=== PATIENT | female | born 1980 | race Caucasian/White ===

== ENCOUNTER 2017-04-20 10:54 | Observation (INO) | payer OTHER ==
--- NOTE | 2017-04-16 08:45 | PDGENHP ---
History and Physical - Chief Complaint RIGHT HIP PAIN - History of Present Illness 1. Bilateral~Femoroacetabular impingement (OSIEL) Cam type, with~resultant labral tear; RIGHT SIDE SYMPTOMATIC 2. Bilateral~Hip Dyplasia 3. Right hip early OA HISTORY OF PRESENT ILLNESS: Omeris a 37 y.o.~active female~who I have had the pleasure to consult on today.~I have enjoyed meeting her. She~lives in [place]. 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 ~She~is ; she~has one~child. ~Omerenjoys gymnastics (she was competed in [place]), hiking, and walking. 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 Presentation today is of~anterior right~hip pain. ~The hip does~wake her~at night and does not~click and catch on her. Sitting can be uncomfortable~for her. Omerdoes~report suffering from lower back pain episodes. Omerhas not~participated in physical therapy and has~tried other conservative measures including dry needling and chiropractic treatments. She~ has not~received sufficient symptomatic improvement. Omerhas~utilized medication for pain management, including NSAID. Omerhas used medication since the pain started. Omerdenies issues with the left~hip. ~ Omerunderstands that she~has a hip and pelvis problem which should be researched and wishes to get a better understanding of her~hip status, followed by an establishment of a treatment strategy, hoping she~would be able to get back to her~well being active life. History: Past medical history: ~ None which is relevant Relevant familial history: None which is relevant Past surgical history: No. Surgery Anesthesia 1 D&E (CLASSIFIED ADVERTISING MANAGER) General 2 Sinus surgery General 3 Calcaneal excision General Omerdescribes problematic issues with general anesthesia which includes nausea and vomiting. I have reviewed, verified and agree with the past medical, surgical, family and social history. Current Medications:~has a current medication list which includes the following prescription(s): ibuprofen. ALLERGIES:~is allergic to codeine; fentanyl; percocet [oxycodone-acetaminophen] ; and vicodin [hydrocodone-acetaminophen]. Objective: Physical Examination: Omeris 4~feet 11~inches tall and weighs~98~Lbs. Omeris AAO x3; she~ is well-nourished, in NAD. Skin is warm and dry. ~Breathing is non-labored. ~CV with RRR by pulse. Abdomen is soft, NTND. Currently, she~walks with a normal~gait. Trendelenburg sign is negative~and proprioception~is normal, both~sides. She~presents~with moderate~signs of joint laxity.~Beightons Score: 5 Lower spine examination is negative~for sciatic or femoral nerve irritation with negative~SLR &~femoral stretch tests. Range of motion of the spine is normal~for flexion, extension, and rotations, with no~associated pain. Strength, Sensation and pulses are normal - bilaterally Ankles and knees exams are normal~and no~mal-alignment is evident. She~has~no~leg length discrepancy. Thigh circumference is asymmetric~with~low~muscle atrophy~on right~side. Hip ROM (degrees): FL ER At 90~hip FL IR At 90~hip FL AB AD EX IR Neutral hip ER Neutral hip R 125 55 20 45 10 10 40 15 L 125 50 35 55 5 10 50 5 Specific hip and pelvis tests: Quadrant ELMIRA Roll Add. Longus R +++ +++ + + L Negative Negative Negative Negative Glut. Med ITB Pos. Imp R Negative 5/5 strength Negative 5/5 strength Negative L Negative 5/5 strength Negative 5/5 strength Negative Squeeze test measured normal Bony Symphysis pubis is pain free~to touch while concentric activity of the rectus abdominis, does not~produce pain at its insertion. Ilio Psos specific tests are negative for pain during cycling for both hips~and remarkable for non painful snap HF has good strength and no pain both hips. Anterior capsule tenderness RIGHT Greater trochanteric burse is pain free~on both hips. Piriformis tests: FAIR is negative, with no~local signs of neuritis related to sciatic nerve. SIJs examination is produces pain on right side~with normal~ELMIRA in relation and local tenderness. Hamstrings tests are negative~functional contraction and negative~tendinopathy both hips. On a daily basis, the following percentages reflect Yulia's overall total pain: Deep hip: 80% SIJ: 20% Imaging: Radiology studies which I~have personally reviewed, analyzed and measured are below: XR: AP of the hip and pelvis: Performed in a good~technique Coccyx to pubic symphysis distance 2.8~cm. 0~degrees [place]~Lines are preserved. Minimal~Pathological signs are seen in the Symphysis Pubis. Minimal~Pathological signs are seen at the Ischial~tuberosity. ~ Specific measurements show: NSA~ LCE Sourcil~Angle Sharp's angle Lat. Cam Lat. Pincer C.Over~sign Head~Coverage % ATDmm R N 14 13 46 + - 12-12:30 60 N L N 13 16 48 + - - 63 N Pos. wall sign ISS NAD ~~Dysplasia Comments R Negative Negative 11.6~mm ++ L Negative Negative 14.7 mm ++ Sclerosis Sup. Lat. OA Cysts Joint Space-WBZ Joint Space-Medial R Negative Negative + 3.3~mm 4.0~mm L Negative Negative + 4.3~mm 4.0~mm X Table lateral: Anterior cam lesion is seen~on both hips. Alpha Angle: ~ Right 70~dergrees Left 76~degrees MRI shows:~significant labral tear, no bone edema, early JSN Impression and plan:~ Yulia~is a 37 y.o.~active female~suffering from symptomatic right~hip pain due to Right Hip Dysplasia and OSIEL CAM type~causing significant disability to her~and altering~her~sport and life activities. Physical examination, imaging, and her~story correspond with the diagnosis mentioned above. I explained that hip dysplasia is a condition wherein the hip joint has excessive play~and instability due to a variety of factors, including the depth and adequacy of the socket, the orientation of the femur bone, and ligament laxity around the hip joint. Dysplasia ranges in severity from borderline to seferino, with treatment options being specific to the specific nature of the problem. Left untreated, the instability in the hip joint can cause progressive tearing of the labrum and deterioration of the surface cartilage, ultimately resulting in progressive osteoarthritis of the hip. I explained that femoroacetabular impingement (OSIEL - Cam type) arises due to a bony or soft tissue conflict between the femur (ball) and acetabulum (socket) caused by an abnormality in the shape of the femoral head and neck. Over time, repetitive impingement can result in damage to the labrum and adjacent surface cartilage within the socket, ultimately giving rise to progressive osteoarthritis of the hip. I explained that although a labral tear can be a source of pain, it is rarely the root of the problem and typically occurs secondary to an underlying abnormality in the shape and mechanics of the hip joint. I reviewed conservative treatment options for Dysplasia and OSIEL including activity modification to avoid positions of impingement or instability, physical therapy, non-steroidal anti-inflammatory medications, and various injections (corticosteroid and PRP) aimed at reducing inflammation in the hip joint or/and preventing dynamic instability and impingement. PRP injections may promote healing and reduce symptoms in certain cases but it will not repair chronically damaged tissue. Although these measures may help to buy time~and reduce current level of symptoms, they are not a definitive solution to the problem given the underlying abnormality in the shape of the hip joint. Patients who have failed conservative management and continue to experience symptoms are candidates for definitive surgical treatment, which may consist of hip arthroscopy alone or in combination with more invasive bony realignment procedures of the hip socket and/or femur called periacetabular osteotomy (BOSTON) or derotational femoral osteotomy (DFO). Hip arthroscopy typically includes treating the labrum with either repair or reconstruction of the torn labrum; as well as addressing the underlying abnormalities by restoring the normal shape to the hip joint. If the cartilage is damaged a Microfracture surgical procedure may also be necessary to help stimulate the growth of fibrocartilage. If a patient requires a labral reconstruction or a Microfracture, the initial rehabilitation from the surgery may take longer, but the intermediate accountant results are typically favorable. I reviewed the technical aspects of periacetabular osteotomy (BOSTON) including risks, benefits, and expected course of recovery. Yulia~understands that BOSTON is an inpatient procedure carried out through two medium sized incisions on the front and back of the hip joint. The hip socket is cut, realigned, and stabilized with 2 ~3 internal screws. Risks include infection, bleeding, injury to nearby nerves or vessels, stiffness, persistent pain, instability, failure of bony healing, implant related complications, and venous thromboembolic disease. Rarely, revision surgery may be required to address these problems. Risks, potential complications, side effects and recovery from surgical procedure were discussed in length. We explained how this surgery is an open procedure, and though patients tend to do well in the long-term, it involves significant pain in the first 2-4 weeks post-op and a rather lengthy rehab.~Overall recovery takes approximately 6 ~12~months depending on the extent of damage and degree of repair. Omerunderstands that she~will undergo hip arthroscopy 1 week prior to the BOSTON to address damage inside the hip joint. Omerunderstands that hip arthroscopy and BOTSON are two separate procedures that are best performed one week apart, with the arthroscopy commencing first to "tighten up" any pathology evident in the hip joint (labral repair, etc.) and the BOSTON open procedure occurring 7-10 days later to realign the acetabulum. Omerwill review the info presented. In order to obtain more detailed information regarding the alignment, orientation, and shape of the bony hip and pelvis I will order a CT scan to be performed. The results of the CT scan, including femoral torsion and acetabular version measured values and 3D images, will aid me in deciding on the best treatment strategy and surgical pre-planning. Omeris going to contact us after completing her~imaging studies. Omeris happy with this plan. I have also supplied her~with handouts, outlining the expected surgical treatment and rehab involved. I wish~YuliaChaddall the best, ~~ Chidi Wagner, PAC History Information - Allergies/Home Medication List Allergies/Adverse Reactions: codeine Allergy (Verified 04/02/17 11:55) fentanyl Allergy (Verified 04/02/17 11:55) hydrocodone [From Vicodin] Allergy (Verified 04/02/17 11:55) oxycodone [From Percocet] Allergy (Verified 04/02/17 11:56) GI Home Medications: NK [No Known Home Meds] 04/02/17 [Last Taken Unknown] I have personally reviewed and updated: medical history - Social History Smoking Status: Never smoked
[2017-04-20] MEDS ORDERED: LIDOCAINE 1% 2 ML INJ ONE (11:45)
[2017-04-20] MEDS ORDERED: PREGABALIN 150 MG CAP PO ONE (11:46)
[2017-04-20] MEDS ORDERED: ceFAZolin 2 GM/DEXTROSE 100 ML IV ONE (11:46)
[2017-04-20] MEDS ORDERED: ACETAMINOPHEN 500 MG TAB PO ONE (11:46)
[2017-04-20] MEDS ORDERED: PREGABALIN 150 MG CAP ONE (11:50)
[2017-04-20] MEDS ORDERED: ACETAMINOPHEN 500 MG TAB ONE (11:51)
[2017-04-20] MEDS ORDERED: CEFAZOLIN 2 GM/DEXTROSE/100 ML BAG IV ONE (11:51)
[2017-04-20] MEDS ORDERED: LR 1,000 ML IV ONE (11:54)
[2017-04-20] MEDS ORDERED: LIDOCAINE 1% 2 ML INJ ID PRN (11:54)
[2017-04-20] MEDS ORDERED: PROPOFOL 200 MG/20 ML VIAL ONE (14:18)
[2017-04-20] MEDS ORDERED: fentaNYL 100 MCG/2 ML INJ ONE (14:18)
[2017-04-20] MEDS ORDERED: ROCURONIUM 100 MG/10 ML VIAL ONE (14:25)
[2017-04-20] MEDS ORDERED: LIDOCAINE 2% 100 MG/5 ML SYR ONE (14:25)
[2017-04-20] MEDS ORDERED: ONDANSETRON 4 MG/2 ML VIAL ONE (14:25)
[2017-04-20] MEDS ORDERED: DEXAMETHASONE 4 MG/ML VIAL ONE (15:58)
[2017-04-20] MEDS ORDERED: HYDROmorphONE/DILAUDID 2 MG/ML INJ ONE (15:58)
[2017-04-20] MEDS: HYDROmorphONE/DILAUDID 1 MG/ML SYR IVP PRN ×2 (18:39→18:47)
[2017-04-20] MEDS ORDERED: NALOXONE HCL 0.4 MG/ML INJ IVP PRN (18:58)
[2017-04-20] MEDS ORDERED: ONDANSETRON 4 MG/2 ML VIAL IVP PRN (18:58)
[2017-04-20] MEDS ORDERED: ACETAMINOPHEN 500 MG TAB PO PRN (18:58)
[2017-04-20] MEDS ORDERED: LR 500 ML IV PRN (18:58)
[2017-04-20] MEDS ORDERED: PROMETHAZINE HCL 25 MG/ML INJ IVP PRN (18:58)
[2017-04-20] MEDS ORDERED: SCOPOLAMINE HYDROBROMIDE 1.5 MG PATCH TD ONE ×2 (20:15→20:47)
[2017-04-20] MEDS ORDERED: HYDROmorphONE/DILAUDID 2 MG TAB PO PRN (20:51)
[2017-04-20] MEDS ORDERED: HYDROmorphONE/DILAUDID 1 MG/ML SYR IVP PRN (20:52)
[2017-04-20] MEDS ORDERED: diphenhydrAMINE 25 MG CAP PO PRN (20:52)
[2017-04-20] MEDS ORDERED: DIAZEPAM 2 MG TAB PO PRN (20:53)
[2017-04-20] MEDS ORDERED: ONDANSETRON DISINTEGRATING 4 MG TAB PO PRN (20:54)
[2017-04-20] MEDS: NAPROXEN SODIUM 220 MG TAB PO SCH (22:08)
[2017-04-21 05:47] VITALS: RESP 16
[2017-04-21] MEDS ORDERED: LR 1,000 ML IV SCH (06:00)
[2017-04-21 07:17] VITALS: BP 91/51; PULSE 92; TEMP 99; O2SAT 96
[2017-04-21] MEDS: NAPROXEN SODIUM 220 MG TAB PO SCH (08:07)
--- NOTE | 2017-04-22 15:07 | PDANEPAE ---
ANE History of Present Illness right hip OSIEL ANE Past Medical History - Cardiovascular History Hx Hypertension: No Hx Arrhythmias: No Hx Chest Pain: No Hx Coronary Artery / Peripheral Vascular Disease: No Hx CHF / Valvular Disease: No Hx Palpitations: No - Pulmonary History Hx COPD: No Hx Asthma/Reactive Airway Disease: No Hx Recent Upper Respiratory Infection: No Hx Oxygen in Use at Home: No Hx Sleep Apnea: No Sleep Apnea Screening Result - Last Documented: Negative - Neurologic History Hx Cerebrovascular Accident: No Hx Seizures: No Hx Dementia: No - Endocrine History Hx Diabetes: No - Renal History Hx Renal Disorders: No - Liver History Hx Hepatic Disorders: No - Neurological & Psychiatric Hx Hx Neurological and Psychiatric Disorders: No - Cancer History Hx Cancer: No - Congenital Disorder History Hx Congenital Disorders: Yes Congenital History Comment: HIP DYSPLASIA - GI History Hx Gastrointestinal Disorders: No - Chronic Pain History Chronic Pain: Yes (RT HIP) - Surgical History Prior Surgeries: RT HIP SCOPE,LABRAL REPAIR 04/20/2017 ANE Review of Systems - Exercise capacity METS (RN): 4 METS ANE Patient History - Allergies Allergies/Adverse Reactions: codeine Allergy (Verified 04/02/17 11:55) fentanyl Allergy (Verified 04/02/17 11:55) hydrocodone [From Vicodin] Allergy (Verified 04/02/17 11:55) oxycodone [From Percocet] Allergy (Verified 04/02/17 11:56) GI - Home Medications Home medications: home medication list seen and reviewed Home Medications: NK [No Known Home Meds] 04/02/17 [Last Taken Unknown] - NPO status NPO Since - Liquids (Date): 04/19/17 NPO Since - Liquids (Time): 21:00 NPO Since - Solids (Date): 04/19/17 NPO Since - Solids (Time): 20:00 - Anes Hx Anes Hx: no prior problems - Smoking Hx Smoking Status: Never smoked ANE Labs/Vital Signs - Vital Signs Blood Pressure: 91/51 Heart Rate: 92 Respiratory Rate: 16 O2 Sat (%): 96 Height: 149.86 cm Weight: 42.638 kg ANE Physical Exam - Airway Neck exam: FROM Mallampati Score: Class 1 Mouth exam: normal dental/mouth exam - Pulmonary Pulmonary: no respiratory distress - Cardiovascular Cardiovascular: regular rate and rhythym - ASA Status ASA Status: II ANE Anesthesia Plan Anesthesia Plan: general endotracheal anesthesia (NOTE: this documentation was performed on the correct DOS 04/20/17, however it was originally entered incorrectly under a future DOS 04/27/17)
--- NOTE | 2017-04-22 15:08 | POSTANESTH ---
Post Anesthetic Evaluation Cardiovascular Status: Normal, Stable Respiratory Status: Normal, Stable Level of Consciousness/Mental Status: Can Participate in Eval Pain Control: Adequate, Prn Tx Ordered Nausea/Vomiting Control: Adequate, Prn Tx Ordered Complications Possibly Related to Anesthesia: None Noted (NOTE: this documentation was performed on the correct DOS 04/20/17, however it was originally entered incorrectly under a future DOS 04/27/17)
== END 2017-04-21 09:00 | disposition home or self-care (01) ==
LOC: FSGY 10:54 → F3N 20:30
PROVIDERS: ADMIT Orthopaedic Surgery Sports Medicine; ATTEND Orthopaedic Surgery Sports Medicine
PROC: 0SQ94ZZ Repair Right Hip Joint, Percutaneous Endoscopic Approach (ICD-10-PCS; principal; 2017-04-20 12:45)
DX: M25.851 Other specified joint disorders, right hip (principal); M16.11 Unilateral primary osteoarthritis, right hip
CPT/HCPCS: 29914; 29916; 76001; G0378; C1713; C1769; J0171; J0690; J1100; J1170; J2001; J2405; J2704; J3010

== ENCOUNTER 2017-04-27 05:59 | Inpatient (IN) | payer OTHER ==
--- NOTE | 2017-04-20 14:10 | PDANEPAE ---
ANE History of Present Illness right hip OSIEL ANE Past Medical History - Cardiovascular History Hx Hypertension: No Hx Arrhythmias: No Hx Chest Pain: No Hx Coronary Artery / Peripheral Vascular Disease: No Hx CHF / Valvular Disease: No Hx Palpitations: No - Pulmonary History Hx COPD: No Hx Asthma/Reactive Airway Disease: No Hx Recent Upper Respiratory Infection: No Hx Oxygen in Use at Home: No Hx Sleep Apnea: No Sleep Apnea Screening Result - Last Documented: Negative - Neurologic History Hx Cerebrovascular Accident: No Hx Seizures: No Hx Dementia: No - Endocrine History Hx Diabetes: No - Renal History Hx Renal Disorders: No - Liver History Hx Hepatic Disorders: No - Neurological & Psychiatric Hx Hx Neurological and Psychiatric Disorders: No - Cancer History Hx Cancer: No - Congenital Disorder History Hx Congenital Disorders: Yes Congenital History Comment: HIP DYSPLASIA - GI History Hx Gastrointestinal Disorders: No - Chronic Pain History Chronic Pain: Yes (RT HIP) - Surgical History Prior Surgeries: RT HIP SCOPE,LABRAL REPAIR 04/20/2017 ANE Review of Systems Review of systems is: negative - Exercise capacity METS (RN): 4 METS ANE Patient History - Allergies Allergies/Adverse Reactions: codeine Allergy (Verified 04/02/17 11:55) fentanyl Allergy (Verified 04/02/17 11:55) hydrocodone [From Vicodin] Allergy (Verified 04/02/17 11:55) oxycodone [From Percocet] Allergy (Verified 04/02/17 11:56) GI - Home Medications Home medications: home medication list seen and reviewed Home Medications: NK [No Known Home Meds] 04/02/17 [Last Taken Unknown] - Anes Hx Anes Hx: no prior problems - Smoking Hx Smoking Status: Never smoked ANE Labs/Vital Signs - Vital Signs Height: 149.86 cm Weight: 42.638 kg ANE Physical Exam - Airway Neck exam: FROM Mallampati Score: Class 1 Mouth exam: normal dental/mouth exam - Pulmonary Pulmonary: no respiratory distress - Cardiovascular Cardiovascular: regular rate and rhythym - ASA Status ASA Status: II ANE Anesthesia Plan Anesthesia Plan: general endotracheal anesthesia
--- NOTE | 2017-04-20 18:25 | POSTANESTH ---
Post Anesthetic Evaluation Cardiovascular Status: Normal, Stable Respiratory Status: Normal, Stable Level of Consciousness/Mental Status: Can Participate in Eval Pain Control: Adequate, Prn Tx Ordered Nausea/Vomiting Control: Adequate, Prn Tx Ordered Complications Possibly Related to Anesthesia: None Noted
--- NOTE | 2017-04-23 08:34 | PDGENHP ---
History and Physical - Chief Complaint RIGHT HIP PAIN - History of Present Illness 1. Bilateral~Femoroacetabular impingement (OSIEL) Cam type, with~resultant labral tear; RIGHT SIDE SYMPTOMATIC 2. Bilateral~Hip Dyplasia 3. Right hip early OA HISTORY OF PRESENT ILLNESS: Omeris a 37 y.o.~active female~who I have had the pleasure to consult on today.~I have enjoyed meeting her. She~lives in [place]. 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 ~She~is ; she~has one~child. ~Omerenjoys gymnastics (she was competed in [place]), hiking, and walking. Yulia's right~hip pain~started in August 2016 after a CASTING CLEANER procedure, with no~recalled trauma or injury, and with no~previous complaints.~Omerdoes not have~a known history of hip dysplasia. Presentation today is of~anterior right~hip pain. ~The hip does~wake her~at night and does not~click and catch on her. Sitting can be uncomfortable~for her. Omerdoes~report suffering from lower back pain episodes. Omerhas not~participated in physical therapy and has~tried other conservative measures including dry needling and chiropractic treatments. She~ has not~received sufficient symptomatic improvement. Omerhas~utilized medication for pain management, including NSAID. Omerhas used medication since the pain started. Omerdenies issues with the left~hip. ~ Omerunderstands that she~has a hip and pelvis problem which should be researched and wishes to get a better understanding of her~hip status, followed by an establishment of a treatment strategy, hoping she~would be able to get back to her~well being active life. History: Past medical history: ~ None which is relevant Relevant familial history: None which is relevant Past surgical history: No. Surgery Anesthesia 1 D&E (CASTING CLEANER) General 2 Sinus surgery General 3 Calcaneal excision General Omerdescribes problematic issues with general anesthesia which includes nausea and vomiting. I have reviewed, verified and agree with the past medical, surgical, family and social history. Current Medications:~has a current medication list which includes the following prescription(s): ibuprofen. ALLERGIES:~is allergic to codeine; fentanyl; percocet [oxycodone-acetaminophen] ; and vicodin [hydrocodone-acetaminophen]. Objective: Physical Examination: Omeris 4~feet 11~inches tall and weighs~98~Lbs. Omeris AAO x3; she~ is well-nourished, in NAD. Skin is warm and dry. ~Breathing is non-labored. ~CV with RRR by pulse. Abdomen is soft, NTND. Currently, she~walks with a normal~gait. Trendelenburg sign is negative~and proprioception~is normal, both~sides. She~presents~with moderate~signs of joint laxity.~Beightons Score: 5 Lower spine examination is negative~for sciatic or femoral nerve irritation with negative~SLR &~femoral stretch tests. Range of motion of the spine is normal~for flexion, extension, and rotations, with no~associated pain. Strength, Sensation and pulses are normal - bilaterally Ankles and knees exams are normal~and no~mal-alignment is evident. She~has~no~leg length discrepancy. Thigh circumference is asymmetric~with~low~muscle atrophy~on right~side. Hip ROM (degrees): FL ER At 90~hip FL IR At 90~hip FL AB AD EX IR Neutral hip ER Neutral hip R 125 55 20 45 10 10 40 15 L 125 50 35 55 5 10 50 5 Specific hip and pelvis tests: Quadrant ELMIRA Roll Add. Longus R +++ +++ + + L Negative Negative Negative Negative Glut. Med ITB Pos. Imp R Negative 5/5 strength Negative 5/5 strength Negative L Negative 5/5 strength Negative 5/5 strength Negative Squeeze test measured normal Bony Symphysis pubis is pain free~to touch while concentric activity of the rectus abdominis, does not~produce pain at its insertion. Ilio Psos specific tests are negative for pain during cycling for both hips~and remarkable for non painful snap HF has good strength and no pain both hips. Anterior capsule tenderness RIGHT Greater trochanteric burse is pain free~on both hips. Piriformis tests: FAIR is negative, with no~local signs of neuritis related to sciatic nerve. SIJs examination is produces pain on right side~with normal~ELMIRA in relation and local tenderness. Hamstrings tests are negative~functional contraction and negative~tendinopathy both hips. On a daily basis, the following percentages reflect Yulia's overall total pain: Deep hip: 80% SIJ: 20% Imaging: Radiology studies which I~have personally reviewed, analyzed and measured are below: XR: AP of the hip and pelvis: Performed in a good~technique Coccyx to pubic symphysis distance 2.8~cm. 0~degrees [place]~Lines are preserved. Minimal~Pathological signs are seen in the Symphysis Pubis. Minimal~Pathological signs are seen at the Ischial~tuberosity. ~ Specific measurements show: NSA~ LCE Sourcil~Angle Sharp's angle Lat. Cam Lat. Pincer C.Over~sign Head~Coverage % ATDmm R N 14 13 46 + - 12-12:30 60 N L N 13 16 48 + - - 63 N Pos. wall sign ISS NAD ~~Dysplasia Comments R Negative Negative 11.6~mm ++ L Negative Negative 14.7 mm ++ Sclerosis Sup. Lat. OA Cysts Joint Space-WBZ Joint Space-Medial R Negative Negative + 3.3~mm 4.0~mm L Negative Negative + 4.3~mm 4.0~mm X Table lateral: Anterior cam lesion is seen~on both hips. Alpha Angle: ~ Right 70~dergrees Left 76~degrees MRI shows:~significant labral tear, no bone edema, early JSN Impression and plan:~ Yulia~is a 37 y.o.~active female~suffering from symptomatic right~hip pain due to Right Hip Dysplasia and OSIEL CAM type~causing significant disability to her~and altering~her~sport and life activities. Physical examination, imaging, and her~story correspond with the diagnosis mentioned above. I explained that hip dysplasia is a condition wherein the hip joint has excessive play~and instability due to a variety of factors, including the depth and adequacy of the socket, the orientation of the femur bone, and ligament laxity around the hip joint. Dysplasia ranges in severity from borderline to seferino, with treatment options being specific to the specific nature of the problem. Left untreated, the instability in the hip joint can cause progressive tearing of the labrum and deterioration of the surface cartilage, ultimately resulting in progressive osteoarthritis of the hip. I explained that femoroacetabular impingement (OSIEL - Cam type) arises due to a bony or soft tissue conflict between the femur (ball) and acetabulum (socket) caused by an abnormality in the shape of the femoral head and neck. Over time, repetitive impingement can result in damage to the labrum and adjacent surface cartilage within the socket, ultimately giving rise to progressive osteoarthritis of the hip. I explained that although a labral tear can be a source of pain, it is rarely the root of the problem and typically occurs secondary to an underlying abnormality in the shape and mechanics of the hip joint. I reviewed conservative treatment options for Dysplasia and OSIEL including activity modification to avoid positions of impingement or instability, physical therapy, non-steroidal anti-inflammatory medications, and various injections (corticosteroid and PRP) aimed at reducing inflammation in the hip joint or/and preventing dynamic instability and impingement. PRP injections may promote healing and reduce symptoms in certain cases but it will not repair chronically damaged tissue. Although these measures may help to buy time~and reduce current level of symptoms, they are not a definitive solution to the problem given the underlying abnormality in the shape of the hip joint. Patients who have failed conservative management and continue to experience symptoms are candidates for definitive surgical treatment, which may consist of hip arthroscopy alone or in combination with more invasive bony realignment procedures of the hip socket and/or femur called periacetabular osteotomy (BOSTON) or derotational femoral osteotomy (DFO). Hip arthroscopy typically includes treating the labrum with either repair or reconstruction of the torn labrum; as well as addressing the underlying abnormalities by restoring the normal shape to the hip joint. If the cartilage is damaged a Microfracture surgical procedure may also be necessary to help stimulate the growth of fibrocartilage. If a patient requires a labral reconstruction or a Microfracture, the initial rehabilitation from the surgery may take longer, but the emt intermediate results are typically favorable. I reviewed the technical aspects of periacetabular osteotomy (BOSTON) including risks, benefits, and expected course of recovery. Yulia~understands that BOSTON is an inpatient procedure carried out through two medium sized incisions on the front and back of the hip joint. The hip socket is cut, realigned, and stabilized with 2 ~3 internal screws. Risks include infection, bleeding, injury to nearby nerves or vessels, stiffness, persistent pain, instability, failure of bony healing, implant related complications, and venous thromboembolic disease. Rarely, revision surgery may be required to address these problems. Risks, potential complications, side effects and recovery from surgical procedure were discussed in length. We explained how this surgery is an open procedure, and though patients tend to do well in the long-term, it involves significant pain in the first 2-4 weeks post-op and a rather lengthy rehab.~Overall recovery takes approximately 6 ~12~months depending on the extent of damage and degree of repair. Omerunderstands that she~will undergo hip arthroscopy 1 week prior to the BOSTON to address damage inside the hip joint. Omerunderstands that hip arthroscopy and BOSTON are two separate procedures that are best performed one week apart, with the arthroscopy commencing first to "tighten up" any pathology evident in the hip joint (labral repair, etc.) and the BOSTON open procedure occurring 7-10 days later to realign the acetabulum. Omerwill review the info presented. In order to obtain more detailed information regarding the alignment, orientation, and shape of the bony hip and pelvis I will order a CT scan to be performed. The results of the CT scan, including femoral torsion and acetabular version measured values and 3D images, will aid me in deciding on the best treatment strategy and surgical pre-planning. Omeris going to contact us after completing her~imaging studies. Omeris happy with this plan. I have also supplied her~with handouts, outlining the expected surgical treatment and rehab involved. I wish~YuliaChaddall the best, ~~ Chidi Wagner, PAC History Information - Allergies/Home Medication List Allergies/Adverse Reactions: codeine Allergy (Verified 04/02/17 11:55) fentanyl Allergy (Verified 04/02/17 11:55) hydrocodone [From Vicodin] Allergy (Verified 04/02/17 11:55) oxycodone [From Percocet] Allergy (Verified 04/02/17 11:56) GI Home Medications: NK [No Known Home Meds] 04/02/17 [Last Taken Unknown] I have personally reviewed and updated: medical history - Social History Smoking Status: Never smoked
[~2017-04-27 05:59] MED LIST: ACETAMINOPHEN 500 MG TAB PO PRN; HYDROmorphONE/DILAUDID 1 MG/ML SYR IVP PRN; HYDROmorphONE/DILAUDID 1 MG/ML SYR ONE; LR 500 ML IV PRN; MEPERIDINE 25 MG/ML SYR IVP PRN; MIDAZOLAM 2 MG/2 ML VIAL IVP ONE; NALOXONE HCL 0.4 MG/ML INJ IVP PRN; ONDANSETRON 4 MG/2 ML VIAL IVP PRN; ONDANSETRON 4 MG/2 ML VIAL ONE; PATCH REMOVAL 1 EA PATCH TD ONE; PROMETHAZINE HCL 25 MG/ML INJ IVP PRN; PROMETHAZINE HCL 25 MG/ML INJ ONE; SCOPOLAMINE HYDROBROMIDE 1.5 MG PATCH TD ONE
[2017-04-27] MEDS ORDERED: LIDOCAINE 1% 2 ML INJ ID PRN (06:17)
[2017-04-27] MEDS ORDERED: LR 1,000 ML IV ONE (06:17)
[2017-04-27] MEDS ORDERED: ACETAMINOPHEN 500 MG TAB PO ONE (06:54)
[2017-04-27] MEDS ORDERED: SCOPOLAMINE HYDROBROMIDE 1.5 MG PATCH TD ONE (06:54)
[2017-04-27] MEDS ORDERED: CITRATE DEXTROSE SOLN 500 ML BAG ONE (06:54)
[2017-04-27] MEDS ORDERED: ceFAZolin 2 GM/DEXTROSE 100 ML IV ONE (06:54)
[2017-04-27] MEDS ORDERED: TRANEXAMIC ACID 1,000 MG in NS 100 ML IV ONE (06:54)
[2017-04-27] MEDS ORDERED: PREGABALIN 150 MG CAP PO ONE (06:54)
--- NOTE | 2017-04-27 07:12 | PDANEPAE ---
ANE Past Medical History - Cardiovascular History Hx Hypertension: No Hx Arrhythmias: No Hx Chest Pain: No Hx Coronary Artery / Peripheral Vascular Disease: No Hx CHF / Valvular Disease: No Hx Palpitations: No - Pulmonary History Hx COPD: No Hx Asthma/Reactive Airway Disease: No Hx Recent Upper Respiratory Infection: No Hx Oxygen in Use at Home: No Hx Sleep Apnea: Yes Sleep Apnea Screening Result - Last Documented: Negative - Neurologic History Hx Cerebrovascular Accident: No Hx Seizures: No Hx Dementia: No - Endocrine History Hx Diabetes: No - Renal History Hx Renal Disorders: No - Liver History Hx Hepatic Disorders: No - Neurological & Psychiatric Hx Hx Neurological and Psychiatric Disorders: No - Cancer History Hx Cancer: No - Congenital Disorder History Hx Congenital Disorders: Yes Congenital History Comment: HIP DYSPLASIA - GI History Hx Gastrointestinal Disorders: No - Chronic Pain History Chronic Pain: Yes (RT HIP) - Surgical History Prior Surgeries: RT HIP SCOPE,LABRAL REPAIR 04/20/2017 ANE Review of Systems - Exercise capacity METS (RN): 4 METS ANE Patient History - Allergies Allergies/Adverse Reactions: codeine Allergy (Verified 04/02/17 11:55) fentanyl Allergy (Verified 04/02/17 11:55) hydrocodone [From Vicodin] Allergy (Verified 04/02/17 11:55) oxycodone [From Percocet] Allergy (Verified 04/02/17 11:56) GI - Home Medications Home Medications: NK [No Known Home Meds] 04/02/17 [Last Taken Unknown] - NPO status NPO Since - Liquids (Date): 04/27/17 NPO Since - Liquids (Time): 03:00 NPO Since - Solids (Date): 04/26/17 NPO Since - Solids (Time): 19:00 - Smoking Hx Smoking Status: Never smoked ANE Labs/Vital Signs - Vital Signs Height: 149.86 cm Weight: 42.638 kg ANE Physical Exam - Airway Mallampati Score: Class 1 - ASA Status ASA Status: I ANE Anesthesia Plan Anesthesia Plan: GA w LMA, epidural
[2017-04-27] MEDS ORDERED: MIDAZOLAM 2 MG/2 ML VIAL ONE (07:16)
[2017-04-27] MEDS ORDERED: fentaNYL 100 MCG/2 ML INJ ONE (07:38)
[2017-04-27] MEDS ORDERED: PROPOFOL 200 MG/20 ML VIAL ONE ×2 (07:39→09:28)
[2017-04-27] MEDS ORDERED: ONDANSETRON 4 MG/2 ML VIAL ONE (07:39)
[2017-04-27] MEDS ORDERED: METOCLOPRAMIDE 10 MG/2 ML VIAL ONE (07:39)
[2017-04-27] MEDS ORDERED: DEXAMETHASONE 4 MG/ML VIAL ONE ×2 (07:40)
[2017-04-27] MEDS ORDERED: BUPIVACAINE 0.25% 30 ML SDV ONE (07:56)
[2017-04-27] MEDS ORDERED: PROMETHAZINE HCL 25 MG/ML INJ ONE (08:00)
[2017-04-27] MEDS ORDERED: NARCOTIC DRIP BAG-TOTAL ALL TYPES EP PRN (11:19)
[2017-04-27] MEDS ORDERED: NALOXONE HCL 0.4 MG/ML INJ IVP PRN (11:19)
[2017-04-27] MEDS ORDERED: diphenhydrAMINE 25 MG CAP PO PRN (11:19)
[2017-04-27] MEDS ORDERED: ONDANSETRON 4 MG/2 ML VIAL IVP PRN ×2 (11:19→11:59)
[2017-04-27] MEDS ORDERED: LR 500 ML IV PRN (11:59)
[2017-04-27] MEDS ORDERED: PROMETHAZINE HCL 25 MG/ML INJ IVP PRN (11:59)
[2017-04-27] MEDS: fentaNYL 2MCG/ML/BUP 0.1% RTU 100 ML EP SCH ×2 (12:00→23:29)
[2017-04-27] MEDS ORDERED: BISACODYL 10 MG SUPP PR PRN (12:08)
[2017-04-27] MEDS ORDERED: POLYETHYLENE GLYCOL 3350 17 GM PKT PO PRN (12:08)
[2017-04-27] MEDS ORDERED: LACTULOSE 20 GM/30 ML UDCUP PO PRN (12:08)
[2017-04-27] MEDS ORDERED: MAGNESIUM HYDROXIDE 30 ML UDCUP PO PRN (12:08)
[2017-04-27] MEDS ORDERED: ACETAMINOPHEN 325 MG TAB PO PRN (12:08)
[2017-04-27] MEDS: SCOPOLAMINE HYDROBROMIDE 1.5 MG PATCH TD SCH (14:15)
--- NOTE | 2017-04-27 14:54 | SUROPNOTE ---
[facility] Operative Report - [facility] Diagnosis: Right 1. Hip Acetabular Dysplasia Operation: Right~Ching Acetabular Osteotomy (BOSTON) Surgeon: Ras Guzmán MD Wind Tunnel Mechanic:~~Vinicius Wagner Anesthetic: General + epidural Procedure: General anesthetic. Antibiotics given. Cell saver in use. Fluoroscopy. Phase 1: Position lateral, diagonal skin incision between ischial tuberosity and greater trochanter as for posterior hip approach. Blunt split of glut max fibers. Identification of fat pad overlying sciatic nerve. Exposure of sciatic nerve under fat pad, gently retracting it away-medially to ischial tuberosity. Exposure of subcotoloid fossa proximal to short rotators. Using osteotomes and under fluoroscopy, osteotomy of subcotoloid fossa to sciatic notch proximal to ischial spine. Closure of lateral cut. Patient is turned supine. Phase 2: Skin incision just distal to ASIS. Using diathermy the iliac spine was exposed and inguinal ligament + Sartorious were retracted medially, taking the LFCN with them, protecting it. Inner ilium was dissected from iliacus muscle bluntly , with a cob and swab. Dissection continued towards lateral superior ramus pubis. Using fluoroscopy an osteotomy of lateral superior ramus, just medial to tear drop, was performed with curved fish mouth osteotome. Phase 3: Osteotomy lines of the ilium were marked with diathermy as pre planned according to XR/CT and expected correction of acatabulum. 2 Shanz screws were drilled into central acetabular fragment, corresponding with planned correction angles, in order to mobilize central acetabular fragment after osteotomy is complete. ~Iliac osteotomy was performed with reciprocating saw and the main acetabular fragment was moved to realign weight bearing position. After confirmation of correction using fluoroscopy in AP and false profile planes, the fragment was fixed with 2 - 5.5mm ~full threaded~screws~and 1 - 4mm~~full threaded~screw. Inguinal ligament and Sartorious were attached back to ASIS through drill holes. Incision was closed according to soft tissue layers. Skin was closed with subdermal Monocryl. Final fluoro shots were obtained to confirm position/correction. After surgery Yulia~moved both lower limbs and had no NV motor compromise. Evaluation under anesthesia: IR at 90 degrees hip flexion prior to BOSTON was 30~degrees and after BOSTON was 15~ degrees. Bleedin~cc into cell-saver, 275~of blood products were returned to patient. Post op instructions: 1. Non~weight bearing crutches for 6 weeks 2. Epidural analgesia for 24-48 hours 3. Continuous SCD 4. Aspirin 81 mg X1 day once Epidural is discontinued 5. Avoid hip flexion past 90 and hip External rotation. 6. PT according to my recommendations at follow up visit Kind regards, Dr. Ras Guzmán
[2017-04-27] MEDS ORDERED: HYDROmorphONE/DILAUDID 1 MG/ML SYR IVP PRN (15:17)
[2017-04-27] MEDS ORDERED: D5W 1/2 NS 1,000 ML IV SCH (15:30)
[2017-04-27] MEDS: SENNOSIDES/DOCUSATE SODIUM TAB PO SCH (21:20)
[2017-04-28 05:08] LABS: HEMATOCRIT 25.5 % (38.0-47.0); HEMOGLOBIN 8.6 g/dL (12.6-16.3); MEAN CELL HEMOGLOBIN 32.3 pg (27.9-34.1); MEAN CELL HEMOGLOBIN CONCENTR. 33.7 g/dL (32.4-36.7); MEAN CELL VOLUME 95.9 fL (81.5-99.8); RED BLOOD CELL COUNT 2.66 10^6/uL (4.18-5.33); RED CELL DISTRIBUTION WIDTH 12.3 % (11.5-15.2)
[2017-04-28 05:29] LABS: ANION GAP 6 mEq/L (8-16); CALCIUM 8.5 mg/dL (8.5-10.4); CARBON DIOXIDE 23 mEq/l (22-31); CHLORIDE 105 mEq/L (97-110); CREATININE 0.9 mg/dL (0.6-1.0); GLOMERULAR FILTRATION RATE > 60; GLUCOSE 90 mg/dL (70-100); SODIUM 134 mEq/L (134-144)
[2017-04-28] MEDS: SENNOSIDES/DOCUSATE SODIUM TAB PO SCH ×2 (08:25→19:55)
[2017-04-28] MEDS: DIAZEPAM 2 MG TAB PO PRN (08:25)
--- NOTE | 2017-04-28 09:34 | SOAPPROG ---
SOAP Progress Note Assessment/Plan: Assessment: Doing well. Plan: Continue current care. 04/28/17 09:31 Subjective: Yulia is POD 1 from a right BOSTON and states she has done well overnight. 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 She has had some mild itching that did not require treatment and no nausea. Objective: Vital Signs Temp Pulse Resp BP Pulse Ox 36.9 C 86 14 81/48 L 96 04/28/17 07:37 04/28/17 07:37 04/28/17 07:37 04/28/17 07:37 04/28/17 07:37 Laboratory Results 04/28/17 04:35 04/28/17 04:35 04/27/17 04/28/17 04/29/17 05:59 05:59 05:59 Intake Total 4220 Output Total 3175 Balance 1045 ICD10 Worksheet Patient Problems: Problems Problem Status Onset Post-op pain Acute - ICD10 Problem Qualifiers (1) Post-op pain
[2017-04-28] MEDS: DC NARCS MISC SCH (09:50)
[2017-04-28] MEDS: REGARDING ANTICOAG MISC SCH (09:50)
[2017-04-28] MEDS: fentaNYL 2MCG/ML/BUP 0.1% RTU 100 ML EP SCH (13:29)
--- NOTE | 2017-04-28 22:25 | SOAPPROG ---
WES Progress Note Assessment/Plan: Assessment: 1 day post op Right Periacetabular Osteotomy Plan: D/C epidural tomorrow and transition to oral analgesics Up with PT/OT PRN Pelvis Xray 04/28/17 22:22 Subjective: Yulia was well pain controlled up until this morning but says pain has been higher this afternoon. She's been up to the side of the bed with PT. She denies any cp, sob or nausea. Objective: Vital Signs Temp Pulse Resp BP Pulse Ox 37.3 C 97 18 100/57 L 96 04/28/17 20:00 04/28/17 20:00 04/28/17 20:00 04/28/17 20:00 04/28/17 20:00 Laboratory Results 04/28/17 04:35 04/28/17 04:35 04/27/17 04/28/17 04/29/17 05:59 05:59 05:59 Intake Total 4220 1500 Output Total 3175 700 Balance 1045 800 Well appearing in NAD low normal H/H Right Hip: dressings clean dry (posterior cut does not have bandage but steri strips are intact and there is no drainage) some edema NVI distally Full ROM of foot and ankle - Pending Discharge Pending Discharge Within 48 Hours: Yes Pending Discharge Date: 04/30/17 Pending Discharge Time: 11:00 ICD10 Worksheet Patient Problems: Problems Problem Status Onset Post-op pain Acute
[2017-04-29] MEDS: fentaNYL 2MCG/ML/BUP 0.1% RTU 100 ML EP SCH (02:14)
[2017-04-29] MEDS: SENNOSIDES/DOCUSATE SODIUM TAB PO SCH ×2 (07:17→22:14)
[2017-04-29] MEDS: REGARDING ANTICOAG MISC SCH (07:17)
[2017-04-29] MEDS: DC NARCS MISC SCH (07:17)
[2017-04-29] MEDS: ONDANSETRON 4 MG/2 ML VIAL IVP PRN (10:26)
[2017-04-29] MEDS: ASPIRIN EC 81 MG TAB PO SCH (11:49)
--- NOTE | 2017-04-29 15:55 | SOAPPROG ---
SOAP Progress Note Assessment/Plan: Assessment: Doing well. Plan: Continue current care. 04/28/17 09:31 04/29/17 15:53 Continues to progress. Has not used ADMINISTRATIVE ASSISTANT RECEPTIONIST function today on ADMINISTRATIVE ASSISTANT RECEPTIONIST. Will stop epidural infusion now and transition to po meds. I will leave catheter inplace for now. Objective: Vital Signs Temp Pulse Resp BP Pulse Ox 37.7 C 104 H 16 94/57 L 98 04/29/17 15:42 04/29/17 15:42 04/29/17 15:42 04/29/17 15:42 04/29/17 15:42 Laboratory Results 04/28/17 04:35 04/28/17 04:35 04/28/17 04/29/17 04/30/17 05:59 05:59 05:59 Intake Total 4220 1999 Output Total 3175 1700 850 Balance 1045 300 -850 ICD10 Worksheet Patient Problems: Problems Problem Status Onset Post-op pain Acute - ICD10 Problem Qualifiers (1) Post-op pain
[2017-04-29] MEDS: DIAZEPAM 2 MG TAB PO PRN (16:07)
[2017-04-29] MEDS ORDERED: HYDROmorphONE/DILAUDID 1 MG/ML SYR IVP PRN (16:23)
[2017-04-29] MEDS: HYDROmorphONE/DILAUDID 4 MG TAB PO SCH ×2 (18:07→23:54)
[2017-04-30] MEDS: HYDROmorphONE/DILAUDID 4 MG TAB PO SCH ×8 (00:05→21:54)
--- NOTE | 2017-04-30 00:23 | SOAPPROG ---
SOAP Progress Note Assessment/Plan: Assessment: Plan: 04/30/17 00:22 Saw patient Wed night, POD 2. Epi in but transitioned to meds, clamped, pain is well controlled. NV intact, dressing clean dry. SCD on. Passed gas. Will monitor Dr Guzmán Objective: Vital Signs Temp Pulse Resp BP Pulse Ox 37.1 C 81 18 92/60 L 95 04/29/17 23:43 04/29/17 23:43 04/29/17 23:43 04/29/17 23:43 04/29/17 23:43 Laboratory Results 04/28/17 04:35 04/28/17 04:35 04/28/17 04/29/17 04/30/17 05:59 05:59 05:59 Intake Total 4220 1999 Output Total 6175 1700 2350 Balance 1045 300 -2350 ICD10 Worksheet Patient Problems: Problems Problem Status Onset Post-op pain Acute
[2017-04-30] MEDS ORDERED: PATCH REMOVAL 1 EA PATCH TD SCH (06:55)
[2017-04-30] MEDS: SCOPOLAMINE HYDROBROMIDE 1.5 MG PATCH TD SCH (08:44)
[2017-04-30] MEDS: ONDANSETRON DISINTEGRATING 4 MG TAB PO PRN ×2 (08:47→21:57)
[2017-04-30] MEDS: SENNOSIDES/DOCUSATE SODIUM TAB PO SCH ×2 (09:53→20:01)
[2017-04-30] MEDS: ASPIRIN EC 81 MG TAB PO SCH (09:53)
--- NOTE | 2017-04-30 10:59 | SOAPPROG ---
SOAP Progress Note Assessment/Plan: Assessment: 3rd day post op Right Periacetabular Osteotomy Plan: Epidural and Ballesteros out today Scopolamine patch/Zofran for nausea Pelvis Xray today Home in next day or two 04/28/17 22:22 04/30/17 10:56 Subjective: Yulia is having nausea and vomiting this morning, attributed to oral Dilaudid. Her pain has been well managed since epidural turned off. Her BP has been low but she denies any symptoms; normally she has low BP, with BOSTON blood loss and epidural her low BP is expected. Objective: Vital Signs Temp Pulse Resp BP Pulse Ox 37.2 C 80 16 93/58 L 95 04/30/17 07:21 04/30/17 07:21 04/30/17 07:21 04/30/17 07:21 04/30/17 07:21 Laboratory Results 04/28/17 04:35 04/28/17 04:35 04/29/17 04/30/17 05/01/17 05:59 05:59 05:59 Intake Total 2000 400 Output Total 1700 2350 300 Balance 300 -1950 -300 Ill appearing in NAD Right Hip: dressings clean dry, edema has decreased, no ecchymosis NVI distally Full ROM of foot and ankle - Pending Discharge Pending Discharge Within 48 Hours: Yes Pending Discharge Date: 05/02/17 Pending Discharge Time: 11:00 ICD10 Worksheet Patient Problems: Problems Problem Status Onset Post-op pain Acute
[2017-04-30] MEDS: ONDANSETRON 4 MG/2 ML VIAL IVP PRN ×2 (13:54)
--- NOTE | 2017-04-30 17:09 | SOAPPROG ---
SOAP Progress Note Assessment/Plan: Assessment: Doing well. Plan: Continue current care. 04/28/17 09:31 04/29/17 15:53 Continues to progress. Has not used STOKER MECHANIC function today on STOKER MECHANIC. Will stop epidural infusion now and transition to po meds. I will leave catheter inplace for now. 04/30/17 17:07 Removed epidural catheter, tip intact. No further anesthesia care indicated at this time. Objective: Vital Signs Temp Pulse Resp BP Pulse Ox 36.8 C 79 12 101/56 L 97 04/30/17 16:00 04/30/17 16:00 04/30/17 16:00 04/30/17 16:00 04/30/17 16:00 Laboratory Results 04/28/17 04:35 04/28/17 04:35 04/29/17 04/30/17 05/01/17 05:59 05:59 05:59 Intake Total 1999 400 Output Total 1700 2350 2250 Balance 300 1950 -2250 ICD10 Worksheet Patient Problems: Problems Problem Status Onset Post-op pain Acute - ICD10 Problem Qualifiers (1) Post-op pain
[2017-04-30] MEDS ORDERED: PROMETHAZINE HCL 25 MG/ML INJ IVP ONE (18:45)
[2017-04-30 20:42] VITALS: RESP 16
[2017-05-01] MEDS: HYDROmorphONE/DILAUDID 4 MG TAB PO SCH ×3 (02:23→11:59)
[2017-05-01] MEDS: ONDANSETRON DISINTEGRATING 4 MG TAB PO PRN (06:01)
[2017-05-01] MEDS: SENNOSIDES/DOCUSATE SODIUM TAB PO SCH (08:51)
[2017-05-01] MEDS: ASPIRIN EC 81 MG TAB PO SCH (08:51)
--- NOTE | 2017-05-01 11:03 | SOAPPROG ---
WES Progress Note Assessment/Plan: Assessment: 4th day post op Right Periacetabular Osteotomy Plan: DC home after PT/OT SCDs 24/ for 2 weeks; then at night for 1 week ASA 81mg for 1 month F/U with Dr. Guzmán in 2 weeks 04/28/17 22:22 04/30/17 10:56 05/01/17 11:00 Subjective: Yulia is feeling much better this morning. She is no longer having nausea. Her pain is well managed with minimal use of Dilaudid. She is ready to go home. Objective: Vital Signs Temp Pulse Resp BP Pulse Ox 37.0 C 79 16 95/54 L 97 05/01/17 08:00 05/01/17 08:00 05/01/17 08:00 05/01/17 08:00 05/01/17 08:00 Laboratory Results 04/28/17 04:35 04/28/17 04:35 04/30/17 05/01/17 05/02/17 05:59 05:59 05:59 Intake Total 400 200 Output Total 2350 4050 Balance -1950 -3850 Well Appearing in NAD Right Hip: dressings clean dry intact some edema NVI distally Full ROM of foot and ankle - Pending Discharge Pending Discharge Within 24 Hours: Yes Pending Discharge Date: 05/02/17 Pending Discharge Time: 11:00 ICD10 Worksheet Patient Problems: Problems Problem Status Onset Post-op pain Acute
[2017-05-01] MEDS: HYDROmorphONE/DILAUDID 2 MG TAB PO SCH ×2 (11:13→15:18)
[2017-05-01 11:40] VITALS: PULSE 81; TEMP 99; O2SAT 98
[2017-05-01] MEDS ORDERED: HYDROmorphONE/DILAUDID 4 MG TAB PO SCH (14:00)
[2017-05-01 15:45] VITALS: BP 93/56
== END 2017-05-01 14:27 | disposition home or self-care (01) | DRG 482 ==
LOC: F3N 05:59
PROVIDERS: ADMIT Orthopaedic Surgery Sports Medicine; ATTEND Orthopaedic Surgery Sports Medicine
PROC: 0Q820ZZ Division of Right Pelvic Bone, Open Approach (ICD-10-PCS; principal; 2017-04-27 12:30)
PROC: 30233H0 Transfusion of Autologous Whole Blood into Peripheral Vein, Percutaneous Approach (ICD-10-PCS; principal; 2017-04-27 12:30)
PROC: 0SS904Z Reposition Right Hip Joint with Internal Fixation Device, Open Approach (ICD-10-PCS; principal; 2017-04-27 12:30)
PROC: 3E0R3CZ (ICD-10-PCS; principal; 2017-04-27 12:30)
DX: Q65.89 Other specified congenital deformities of hip (principal)
CPT/HCPCS: 97116-GP; 97161-GP; 97165-GO; 97530-GO; 97535-GO; C1713; C1769; J0690; J1100; J1170; J2250; J2405; J2550; J2704; J2765; J3010; J7060

== ENCOUNTER 2017-09-14 05:50 | Day surgery (SDC) | payer OTHER ==
--- NOTE | 2017-09-13 11:22 | PDGENHP ---
History and Physical - Chief Complaint Right Hip Pain - History of Present Illness Diagnosis: 1. Bilateral~Femoroacetabular impingement (OSIEL) Cam type, with~resultant labral tear; RIGHT SIDE SYMPTOMATIC 2. Bilateral~Hip Dyplasia 3. Right hip early OA HISTORY OF PRESENT ILLNESS: Omeris a 37 y.o.~active female~who I have had the pleasure to consult on today. I have enjoyed meeting her. She~lives in [place]. 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 ~She~is ; she~has one~child. ~Omerenjoys gymnastics (she was competed in [employer]), hiking, and walking. 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 Omerdoes not have~a known history of hip dysplasia. Presentation today is of anterior right~hip pain. ~The hip does~wake her~at night and does not~click and catch on her. Sitting can be uncomfortable~for her. Omerdoes~report suffering from lower back pain episodes. Omerhas not~participated in physical therapy and has~tried other conservative measures including dry needling and chiropractic treatments. She~ has not~received sufficient symptomatic improvement. Omerhas~utilized medication for pain management, including NSAID. Omerhas used medication since the pain started. Omerdenies issues with the left~hip. ~ Omreunderstands that she~has a hip and pelvis problem which should be researched and wishes to get a better understanding of her~hip status, followed by an establishment of a treatment strategy, hoping sheChaddwould be able to get back to her~well being active life. History: Past medical history: ~ None which is relevant Relevant familial history: None which is relevant Past surgical history: No. Surgery Anesthesia 1 D&E (TAN ROOM SUPERVISOR) General 2 Sinus surgery General 3 Calcaneal excision General Omerdescribes problematic issues with general anesthesia which includes nausea and vomiting. I have reviewed, verified and agree with the past medical, surgical, family and social history. Current Medications:~has a current medication list which includes the following prescription(s): ibuprofen. ALLERGIES:~is allergic to codeine; fentanyl; percocet [oxycodone-acetaminophen] ; and vicodin [hydrocodone-acetaminophen]. Objective: Physical Examination: Omeris 4~feet 11~inches tall and weighs 98~Lbs. Omeris AAO x3; she~ is well-nourished, in NAD. Skin is warm and dry. ~Breathing is non-labored. ~CV with RRR by pulse. Abdomen is soft, NTND. Currently, she~walks with a normal~gait. Trendelenburg sign is negative~and proprioception is normal, both~sides. She~presents with moderate~signs of joint laxity. Beightons Score: 5 Lower spine examination is negative~for sciatic or femoral nerve irritation with negative~SLR &~femoral stretch tests. Range of motion of the spine is normal~for flexion, extension, and rotations, with no~associated pain. Strength, Sensation and pulses are normal - bilaterally Ankles and knees exams are normal~and no~mal-alignment is evident. She~has no~leg length discrepancy. Thigh circumference is asymmetric~with~low~muscle atrophy~on right~side. Hip ROM (degrees): FL ER At 90~hip FL IR At 90~hip FL AB AD EX IR Neutral hip ER Neutral hip R 125 55 20 45 10 10 40 15 L 125 50 35 55 5 10 50 5 Specific hip and pelvis tests: Quadrant ELMIRA Roll Add. Longus R +++ +++ + + L Negative Negative Negative Negative Glut. Med ITB Pos. Imp R Negative 5/5 strength Negative 5/5 strength Negative L Negative 5/5 strength Negative 5/5 strength Negative Squeeze test measured normal Bony Symphysis pubis is pain free~to touch while concentric activity of the rectus abdominis, does not~produce pain at its insertion. Ilio Psos specific tests are negative for pain during cycling for both hips~and remarkable for non painful snap HF has good strength and no pain both hips. Anterior capsule tenderness RIGHT Greater trochanteric burse is pain free~on both hips. Piriformis tests: FAIR is negative, with no~local signs of neuritis related to sciatic nerve. SIJs examination is produces pain on right side~with normal~ELMIRA in relation and local tenderness. Hamstrings tests are negative~functional contraction and negative~tendinopathy both hips. On a daily basis, the following percentages reflect Yulia's overall total pain: Deep hip: 80% SIJ: 20% Imaging: Radiology studies which I have personally reviewed, analyzed and measured are below: XR: AP of the hip and pelvis: Performed in a good~technique Coccyx to pubic symphysis distance 2.8~cm. 0~degrees [place] Lines are preserved. Minimal~Pathological signs are seen in the Symphysis Pubis. Minimal~Pathological signs are seen at the Ischial tuberosity. ~ Specific measurements show: NSA~ LCE Sourcil~Angle Sharp's angle Lat. Cam Lat. Pincer C.Over~sign Head~Coverage % ATDmm R N 14 13 46 + - 12-12:30 60 N L N 13 16 48 + - - 63 N Pos. wall sign ISS NAD ~~Dysplasia Comments R Negative Negative 11.6~mm ++ L Negative Negative 14.7 mm ++ Sclerosis Sup. Lat. OA Cysts Joint Space-WBZ Joint Space-Medial R Negative Negative + 3.3~mm 4.0~mm L Negative Negative + 4.3~mm 4.0~mm X Table lateral: Anterior cam lesion is seen~on both hips. Alpha Angle: ~ Right 70~dergrees Left 76~degrees MRI shows:~significant labral tear, no bone edema, early JSN Impression and plan: Omeris a 37 y.o.~active female~suffering from symptomatic right~hip pain due to Right Hip Dysplasia and OSIEL CAM type~causing significant disability to her~and altering her~sport and life activities. Physical examination, imaging, and her~story correspond with the diagnosis mentioned above. I explained that hip dysplasia is a condition wherein the hip joint has excessive play~and instability due to a variety of factors, including the depth and adequacy of the socket, the orientation of the femur bone, and ligament laxity around the hip joint. Dysplasia ranges in severity from borderline to seferino, with treatment options being specific to the specific nature of the problem. Left untreated, the instability in the hip joint can cause progressive tearing of the labrum and deterioration of the surface cartilage, ultimately resulting in progressive osteoarthritis of the hip. I explained that femoroacetabular impingement (OSIEL - Cam type) arises due to a bony or soft tissue conflict between the femur (ball) and acetabulum (socket) caused by an abnormality in the shape of the femoral head and neck. Over time, repetitive impingement can result in damage to the labrum and adjacent surface cartilage within the socket, ultimately giving rise to progressive osteoarthritis of the hip. I explained that although a labral tear can be a source of pain, it is rarely the root of the problem and typically occurs secondary to an underlying abnormality in the shape and mechanics of the hip joint. I reviewed conservative treatment options for Dysplasia and OSIEL including activity modification to avoid positions of impingement or instability, physical therapy, non-steroidal anti-inflammatory medications, and various injections (corticosteroid and PRP) aimed at reducing inflammation in the hip joint or/and preventing dynamic instability and impingement. PRP injections may promote healing and reduce symptoms in certain cases but it will not repair chronically damaged tissue. Although these measures may help to buy time~and reduce current level of symptoms, they are not a definitive solution to the problem given the underlying abnormality in the shape of the hip joint. Patients who have failed conservative management and continue to experience symptoms are candidates for definitive surgical treatment, which may consist of hip arthroscopy alone or in combination with more invasive bony realignment procedures of the hip socket and/or femur called periacetabular osteotomy (BOSTON) or derotational femoral osteotomy (DFO). Hip arthroscopy typically includes treating the labrum with either repair or reconstruction of the torn labrum; as well as addressing the underlying abnormalities by restoring the normal shape to the hip joint. If the cartilage is damaged a Microfracture surgical procedure may also be necessary to help stimulate the growth of fibrocartilage. If a patient requires a labral reconstruction or a Microfracture, the initial rehabilitation from the surgery may take longer, but the termite treater results are typically favorable. I reviewed the technical aspects of periacetabular osteotomy (BOSTON) including risks, benefits, and expected course of recovery. Yulia~understands that BOSTON is an inpatient procedure carried out through two medium sized incisions on the front and back of the hip joint. The hip socket is cut, realigned, and stabilized with 2 3 internal screws. Risks include infection, bleeding, injury to nearby nerves or vessels, stiffness, persistent pain, instability, failure of bony healing, implant related complications, and venous thromboembolic disease. Rarely, revision surgery may be required to address these problems. Risks, potential complications, side effects and recovery from surgical procedure were discussed in length. We explained how this surgery is an open procedure, and though patients tend to do well in the long-term, it involves significant pain in the first 2-4 weeks post-op and a rather lengthy rehab.~Overall recovery takes approximately 6 12~months depending on the extent of damage and degree of repair. Omerunderstands that she~will undergo hip arthroscopy 1 week prior to the BOSTON to address damage inside the hip joint. Omerunderstands that hip arthroscopy and BOSTON are two separate procedures that are best performed one week apart, with the arthroscopy commencing first to "tighten up" any pathology evident in the hip joint (labral repair, etc.) and the BOSTON open procedure occurring 7-10 days later to realign the acetabulum. Omerwill review the info presented. In order to obtain more detailed information regarding the alignment, orientation, and shape of the bony hip and pelvis I will order a CT scan to be performed. The results of the CT scan, including femoral torsion and acetabular version measured values and 3D images, will aid me in deciding on the best treatment strategy and surgical pre-planning. Omeris going to contact us after completing her~imaging studies. Omeris happy with this plan. I have also supplied her~with handouts, outlining the expected surgical treatment and rehab involved. I wish~YuliaChaddall the best, ~~ SVETLANA Sanchez History Information - Allergies/Home Medication List Allergies/Adverse Reactions: codeine Allergy (Verified 08/17/17 16:30) fentanyl Allergy (Verified 08/17/17 16:30) hydrocodone [From Vicodin] Allergy (Verified 08/17/17 16:30) oxycodone [From Percocet] Allergy (Verified 08/17/17 16:30) GI Home Medications: Herbals/Supplements -Info Only 08/17/17 [Last Taken Unknown] I have personally reviewed and updated: medical history - Social History Smoking Status: Never smoked Review of Systems Review of Systems: Physical Exam Physical Exam:
[2017-09-14] MEDS ORDERED: ceFAZolin 2 GM/SWFI 2 GM/20 ML SYR IVP ONE (06:10)
[2017-09-14] MEDS ORDERED: ACETAMINOPHEN 500 MG TAB PO ONE (06:10)
[2017-09-14] MEDS ORDERED: PREGABALIN 150 MG CAP PO ONE (06:10)
[2017-09-14] MEDS ORDERED: LR 1,000 ML IV ONE (06:12)
[2017-09-14] MEDS ORDERED: LIDOCAINE 1% 2 ML INJ ID PRN (06:12)
[2017-09-14] MEDS ORDERED: LIDOCAINE 1% 300 MG/30 ML SDV ONE ×2 (06:46→06:47)
[2017-09-14] MEDS ORDERED: MIDAZOLAM 2 MG/2 ML VIAL IVP ONE (06:53)
--- NOTE | 2017-09-14 06:53 | PDANEPAE ---
ANE History of Present Illness right hip painful hardware s/p BOSTON ANE Past Medical History - Cardiovascular History Hx Hypertension: No Hx Arrhythmias: No Hx Chest Pain: No Hx Coronary Artery / Peripheral Vascular Disease: No Hx CHF / Valvular Disease: No Hx Palpitations: No - Pulmonary History Hx COPD: No Hx Asthma/Reactive Airway Disease: No Hx Recent Upper Respiratory Infection: No Hx Oxygen in Use at Home: No Hx Sleep Apnea: No Sleep Apnea Screening Result - Last Documented: Negative - Neurologic History Hx Cerebrovascular Accident: No Hx Seizures: No Hx Dementia: No - Endocrine History Hx Diabetes: No Hypothyroid: No Hyperthyroid: No Obesity: no - Renal History Hx Renal Disorders: No - Liver History Hx Hepatic Disorders: No - Neurological & Psychiatric Hx Hx Neurological and Psychiatric Disorders: No - Cancer History Hx Cancer: No - Congenital Disorder History Hx Congenital Disorders: Yes Congenital History Comment: HIP DYSPLASIA - GI History GERD: no Hx Gastrointestinal Disorders: No - Other Health History Other Health History: none - Chronic Pain History Chronic Pain: Yes (RT HIP) - Surgical History Prior Surgeries: 04/27/17 RT hip BOSTON with Tari-Chinmay. 04/20/2017 RT HIP SCOPE, LABRAL REPAIR ANE Review of Systems Review of systems is: negative Review of Systems: - Exercise capacity METS (RN): 4 METS ANE Patient History - Allergies Allergies/Adverse Reactions: codeine Allergy (Verified 09/14/17 06:18) fentanyl Allergy (Verified 09/14/17 06:18) hydrocodone [From Vicodin] Allergy (Verified 08/17/17 16:30) oxycodone [From Percocet] Allergy (Verified 09/14/17 06:18) GI - Home Medications Home medications: home medication list seen and reviewed Home Medications: Herbals/Supplements -Info Only 08/17/17 [Last Taken 08/31/17] - NPO status NPO Since - Liquids (Date): 09/13/17 NPO Since - Liquids (Time): 22:00 NPO Since - Solids (Date): 09/13/17 NPO Since - Solids (Time): 18:00 - Anes Hx Anes Hx: no prior problems - Smoking Hx Smoking Status: Never smoked - Family Anes Hx Family Anes Hx: none Family Hx Anesthesia Complications: none ANE Labs/Vital Signs - Vital Signs Blood Pressure: 99/66 Heart Rate: 74 Respiratory Rate: 16 O2 Sat (%): 97 Height: 149.86 cm Weight: 42.638 kg ANE Physical Exam - Airway Neck exam: FROM Mallampati Score: Class 1 Mouth exam: normal dental/mouth exam - Pulmonary Pulmonary: no respiratory distress - Cardiovascular Cardiovascular: regular rate and rhythym - ASA Status ASA Status: I ANE Anesthesia Plan Anesthesia Plan: GA w LMA
[2017-09-14] MEDS ORDERED: fentaNYL 100 MCG/2 ML INJ ONE (06:58)
[2017-09-14] MEDS ORDERED: PROPOFOL 200 MG/20 ML VIAL ONE (06:59)
[2017-09-14] MEDS ORDERED: SCOPOLAMINE HYDROBROMIDE 1 MG/3 DAYS PATCH TD SCH (07:00)
[2017-09-14] MEDS ORDERED: LIDOCAINE 2% 5 ML SDV ONE (07:01)
[2017-09-14] MEDS ORDERED: ONDANSETRON 4 MG/2 ML VIAL ONE (07:01)
[2017-09-14] MEDS ORDERED: DEXAMETHASONE 4 MG/ML VIAL ONE (07:01)
[2017-09-14] MEDS ORDERED: BUPIVACAINE 0.25% 30 ML SDV ONE (07:35)
[2017-09-14] MEDS ORDERED: KETOROLAC 30 MG/1 ML SDV ONE (07:48)
[2017-09-14] MEDS ORDERED: LR 500 ML IV PRN (08:04)
[2017-09-14] MEDS ORDERED: ONDANSETRON 4 MG/2 ML VIAL IVP PRN (08:04)
[2017-09-14] MEDS ORDERED: fentaNYL 100 MCG/2 ML INJ IVP PRN (08:04)
[2017-09-14] MEDS ORDERED: NALOXONE HCL 0.4 MG/ML INJ IVP PRN (08:04)
[2017-09-14] MEDS ORDERED: ACETAMINOPHEN 500 MG TAB PO PRN (08:04)
[2017-09-14] MEDS ORDERED: PROMETHAZINE HCL 25 MG/ML INJ IVP PRN (08:04)
[2017-09-14 08:11] VITALS: TEMP 97.9
[2017-09-14 09:15] VITALS: BP 121/82; PULSE 79; RESP 17; O2SAT 99
[2017-09-15] MEDS ORDERED: PATCH REMOVAL 1 EA PATCH TD ONE (06:53)
== END 2017-09-14 10:25 | disposition home or self-care (01) ==
LOC: FSGY 05:50
PROVIDERS: ATTEND Orthopaedic Surgery Sports Medicine
PROC: 0QP204Z Removal of Internal Fixation Device from Right Pelvic Bone, Open Approach (ICD-10-PCS; principal; 2017-09-14 07:15)
DX: M25.851 Other specified joint disorders, right hip (principal); Q65.89 Other specified congenital deformities of hip; M16.11 Unilateral primary osteoarthritis, right hip; Z88.5 Allergy status to narcotic agent
CPT/HCPCS: J0171; J0690; J1100; J1885; J2405; J2704; J3010